=== PATIENT | male | born 1965 | race Caucasian/White ===

== ENCOUNTER 2018-05-28 16:36 | Outpatient (REF) | payer OTHER, SELFPAY ==
[2018-05-28 22:33] LABS: ALT 43 U/L (12-78); AST 38 U/L (15-37); Albumin 4.2 g/dL (3.4-5.0); Alkaline Phosphatase 159 U/L (46-116); Anion Gap 11.3 mmol/L (3-11); BUN 23 mg/dL (7-18); Bilirubin, Total 0.3 mg/dL (0.2-1.0); CO2 26.7 mmol/L (21.0-32.0); CREATININE 0.93 mg/dL (0.70-1.30); Calcium 9.3 mg/dL (8.5-10.1); Chloride 101 mmol/L (98-107); Cholesterol 235 mg/dL (50-200); Glucose 105 mg/dL (70-100); HDL Cholesterol 31 mg/dL (40-60); LDL CHOLESTEROL 119 mg/dL (<100); Potassium 4.6 mmol/L (3.5-5.1); Sodium 139 mmol/L (136-145); Total Protein 7.3 g/dL (6.4-8.2); Triglyceride 525 mg/dL (30-150)
[2018-05-30 09:37] LABS: PSA, Screening 1.3 ng/ml (0-3.5)
== END 2018-05-28 16:56 ==
LOC: NCHCN 16:36
PROVIDERS: PCP Family Medicine; Visit Provider Family Medicine
DX: Z00.00 Encounter for general adult medical examination without abnormal findings (principal); Z13.220 Encounter for screening for lipoid disorders; Z13.228 Encounter for screening for other metabolic disorders; Z12.5 Encounter for screening for malignant neoplasm of prostate
CPT/HCPCS: 80053; 80061; 83721; 84153

== ENCOUNTER 2018-07-02 01:06 | Outpatient (CLI) | payer OTHER, SELFPAY | END 2018-07-02 01:26 | PROVIDERS: PCP Family Medicine; Visit Provider Dietitian, Registered | DX: E78.1 Pure hyperglyceridemia (principal); Z71.3 Dietary counseling and surveillance | CPT/HCPCS: 97802 ==

== ENCOUNTER 2018-09-02 07:52 | Outpatient (REF) | payer OTHER, SELFPAY ==
[2018-09-02 13:02] LABS: Calculated LDL 168 mg/dL; Cholesterol 230 mg/dL (50-200); HDL Cholesterol 47 mg/dL (40-60); Triglyceride 75 mg/dL (30-150)
== END 2018-09-02 08:12 ==
LOC: NCHCN 07:52
PROVIDERS: PCP Family Medicine; Visit Provider Family Medicine
DX: E78.1 Pure hyperglyceridemia (principal)
CPT/HCPCS: 80061; 83721

== ENCOUNTER 2018-11-19 15:05 | Outpatient (REF) | payer OTHER, SELFPAY ==
[2018-11-19 22:53] LABS: Abs Immature Grans 0.05 k/cumm (0.0-0.09); Absolute Basophil Count 0.02 k/cumm (0.0-0.2); Absolute Eosinophil Count 0.24 k/cumm (0.0-0.7); Absolute Lymphocyte Count 1.99 k/cumm (1.2-3.4); Absolute Monocyte Count 0.52 k/cumm (0.11-0.7); Absolute Neutrophil Count 2.65 k/cumm (1.2-6.7); Basophils % 0.4; Eosinophils % 4.4; HCT 48.4 % (40.0-50.0); HGB 17.5 g/dL (13.5-17.5); Immature Grans % 0.9; Lymphocytes % 36.4; Mean Corp. HGB Concentration 36.2 g/dL (32.0-36.0); Mean Corpuscular Hemoglobin 31.2 pg (27.0-33.0); Mean Corpuscular Volume 86.3 fL (80-95); Mean Platelet Volume 9.5 fL (8.0-11.0); Monocytes % 9.5; Neutrophils % 48.4; Platelet Count 341 x1000/uL (130-400); RBC 5.61 m/cumm (4.50-6.00); RBC Distribution Width 11.8 % (11.8-14.1); White Blood Cell Count 5.47 k/cumm (4.4-10.8)
[2018-11-19 23:08] LABS: ALT 44 U/L (16-63); AST 29 U/L (15-37); Albumin 4.3 g/dL (3.4-5.0); Alkaline Phosphatase 151 U/L (46-116); Anion Gap 10.1 mmol/L (3-11); BUN 23 mg/dL (7-18); Bilirubin, Total 0.6 mg/dL (0.2-1.0); CO2 22.9 mmol/L (21.0-32.0); CREATININE 1.05 mg/dL (0.70-1.30); Calcium 9.1 mg/dL (8.5-10.1); Chloride 98 mmol/L (98-107); Glucose 108 mg/dL (70-100); Sodium 131 mmol/L (136-145); Total Protein 7.5 g/dL (6.4-8.2)
[2018-11-21 11:01] LABS: PSA, Screening 1.2 ng/ml (0-3.5)
== END 2018-11-19 15:25 ==
LOC: NCHCN 15:05
PROVIDERS: PCP Family Medicine; Visit Provider Family Medicine
DX: R63.4 Abnormal weight loss (principal); Z12.5 Encounter for screening for malignant neoplasm of prostate
CPT/HCPCS: 80053; 84153; 83735; 85025; 86140

== ENCOUNTER 2018-12-22 01:50 | Outpatient (CLI) | payer OTHER, SELFPAY ==
--- NOTE | 2018-12-22 08:56 | DI.CT_ITS ---
EXAM: CT ABDOMEN PELVIS W CLINICAL HISTORY: RECENT WT LOSS, R63.4,ABD DISCOMFORT, R10.9 TECHNIQUE: Imaging Protocol: Axial computed tomography images with coronal and sagittal reformatted images were created and reviewed CONTRAST MATERIAL: Intravenous: Omnipaque 350 Contrast volume:100 cc's contrast route:IV - Oral: Yes COMPARISON: No exams were available for comparison FINDINGS: The lung bases are clear. The liver is normal in size. There are a few tiny hypodense lesions in th e liver. They are too small for further characterization but likely reflect small cysts. No suspici ous hepatic mass is present. The portal, superior mesenteric and splenic veins are patent. The gall bladder is unremarkable. There is no biliary ductal dilatation. The pancreas and spleen are unremar kable. The adrenal glands are unremarkable. The kidneys show normal and symmetric enhancement. No solid renal mass or obstruction is identified. The urinary bladder is intact. The prostate gland ap pears mildly enlarged. The abdominal aorta is of normal caliber. No significant abdominal or pelvic adenopathy is present. No abdominal or pelvic ascites or pneumoperitoneum is present. The bowel sh ows no evidence of obstruction or inflammation. There is a normal appendix present. There are degen erative changes seen in the spine. The findings are most marked at L5-S1. Impression: No evidence of an acute abdomen. DATA REPOSITORY: All CT scans at this facility are submitted to the National Radiology Data Registry (NRDR) Dose Index Registry (DIR) with the [employer] ([employer]). RADIATION OPTIMIZATION: All CT scans at this facility use at least one of these dose optimization te chniques: automated exposure control; mA and/or kV adjustment per patient size (includes targeted exa ms where dose is matched to clinical indication); or iterative reconstruction.
[2018-12-22] MEDS: Omnipaque 350 MG/ML 100 ML BTL IJ (08:57)
[2018-12-22] MEDS: Omnipaque 350 MG/ML 50 ML BTL IJ (08:58)
== END 2018-12-22 02:10 ==
PROVIDERS: PCP Family Medicine; Visit Provider Nurse Practitioner Family
DX: R10.9 Unspecified abdominal pain (principal); R63.4 Abnormal weight loss; K76.89 Other specified diseases of liver; N40.0 Benign prostatic hyperplasia without lower urinary tract symptoms
CPT/HCPCS: 74177; J3490; Q9967

== ENCOUNTER 2019-02-03 09:47 | Emergency (ER) | payer OTHER, SELFPAY ==
[2019-02-03] VITALS (42 sets, daily range): BP systolic 91–121; BP diastolic 53–83; PULSE 71–120; RESP 12–21; TEMP 36.7; O2SAT 95–100
[2019-02-03] MEDS: Lactated Ringers 1,000 ML 1000 ML IV (09:58)
--- NOTE | 2019-02-03 09:59 | ED.GENADUL_ITS ---
Discharge Plan Disposition Patient Disposition: HOME Discharge Details Chief Complaint: SOB Clinical Impression: Hyponatremia, Shortness of breath, Fatigue, Unintended weight loss Primary Care Provider: Janice Rasheed ED Provider: Luis Fernando Parisi Home Meds and New Rx's Prescriptions: No Action No Known Home Meds RF: 0 Discharge Instructions Instructions: Dyspnea (ED) Additional Instructions: Your work-up today demonstrates no acute findings. You have an underlying chronic low sodium which has been established at [facility]. I have been in contact with the GI department and I expect in the follow-up with you in the next 24 hours. Contact them tomorrow should you not hear from them by midday. If your symptoms of shortness of breath worsen or you develop chest pain you must return to the emergency department immediately. Referrals: Janice Rasheed [Primary Care Provider] - 5 days Medical Decision Making This is a nontoxic-appearing 53-year-old male who presents to the emergency department with constitutional symptoms of chronic nausea/upset stomach, diarrhea, fatigue with exercise. His new presenting symptom today is shortness of breath. He felt very dizzy prior to arrival and noted labored breathing. He denies any chest pain but does describe heaviness in his chest. He is a low HEART score at this time and his serial enzymes are negative in the emergency department. I do not suspect ACS at this time. His CTA of his chest was negative for acute intrathoracic pathology including pulmonary embolism. His labs demonstrate a hyponatremia at 128 which is exactly the same from his levels yesterday at [facility]. The remainder of his lab tests are within normal limits. He has established care with GI who is closely involved in his case. I spoke to the nurse at the GI clinic, Kayode, earlier in the course of his ED treatment. I left a message with their clinic regarding his lab test today and to follow- up with the patient tomorrow. Patient has a stress test scheduled for early next week. I feel that this is appropriate based on his exercise intolerance with mild dyspnea on exertion. We discussed strict return precautions and the need for follow-up. HPI General Date/Time Provider Initiated Documentation: 02/03/19 09:48 . HPI Narrative: Patient is a 53-year-old male who presents to the emergency department complaining of shortness of breath and generalized fatigue. Patient states that his symptoms have been present for the last month however acutely worse the last 24 hours. He has been seen by his primary care provider and gastroenterology team at [facility] where he was scheduled to have a CT of his chest later today. He denies any chest pain. He has had roughly 25 pounds of weight loss over the last 6 months. He denies any hemoptysis or sputum production. No calf pain or swelling. He has no abdominal pain. He had a CT abdomen and pelvis here in the emergency department several weeks ago which was negative. He denies any rashes or lesions. No family history of early onset heart disease. He is a non-smoker. He denies any history of cancer. No recent or prolonged immobilization and/or surgery. Related Data Home Medications Medication Instructions Recorded Confirmed Unknown [No Known Home Meds] 02/03/19 02/03/19 Allergies Allergy/AdvReac Type Severity Reaction Status Date / Time No Known Allergies Allergy Unverified 02/03/19 09:59 General Stated Complaint: SOB JAYLEEN: 2 Review of Systems Constitutional Constitutional: Reports fatigue, Denies fever(s), Denies headache(s), Reports lethargy, Denies night sweats and Denies snoring Eyes Eyes: Denies blind spots, Denies blurry vision, Denies diplopia, Denies eye discharge, Denies loss of peripheral vision, Denies photophobia, Denies spots in vision and Denies tunnel vision ENT Ears, Nose, Mouth, and Throat: Reports dizziness, Denies headache(s), Denies sinus pressure, Denies sore throat and Denies throat swelling Cardiovascular Cardiovascular: Denies chest pain, Denies claudication, Denies leg edema, Reports lightheadedness and Reports dyspnea Respiratory Respiratory: Denies cough, Denies hemoptysis, Reports dyspnea, Denies snoring, Denies stridor and Denies wheezing Gastrointestinal Gastrointestinal: Denies abdominal pain, Reports belching, Reports diarrhea, Reports nausea and Denies vomiting Genitourinary Genitourinary: Denies dysuria Musculoskeletal Musculoskeletal: Denies muscle cramps and Denies numbness Integumentary/Breasts Skin/Breast: Denies erythema and Denies rash Neurologic Neurologic: Reports dizziness, Denies headache(s), Denies numbness and Denies sensory deficit Endocrine Endocrine: Reports fatigue Hematologic/Lymphatic Hematologic/Lymphatic: Denies easy bleeding and Denies easy bruising Allergic/Immunologic Allergic/Immunologic: Denies throat swelling and Denies wheezing [facility] Social History Smoking/Tobacco Use Status: Former Tobacco Use Alcohol Intake: current Alcohol Intake frequency: 0-2 drinks per day Alcohol type: beer Drug use: Never Substance use type: does not use Exam Const General: cooperative, healthy appearing and anxious Orientation: alert, awake and oriented x3 HENMT Head: normal to inspection Ears: hearing grossly normal bilaterally General nose exam: external nose normal Face and sinus: normal facial exam Mouth: oral mucosae normal Teeth and gingiva: dentition normal Throat: posterior oropharynx normal Eyes General: appearance normal, both eyes and all related structures Pupils: PERRL EOM: EOM intact bilaterally Neck Neck: normal visual inspection, full ROM, no lymphadenopathy and no meningeal signs Chest Chest: normal inspection of the chest and normal palpation of entire chest wall Resp Effort & Inspection: normal respiratory effort and able to speak in complete sentences Auscultation: clear to auscultation bilaterally Cardio Rate: tachycardic Rhythm: regular rhythm Pulses: normal peripheral pulses GI Inspection: normal to inspection Palpation: soft and nontender Back/Spine/Pelvis Back: no CVA tenderness Skin General skin exam: no rashes or lesions noted Neuro General: alert, awake and oriented x3 Cranial Nerves: CN's II-XI intact bilaterally Motor: muscle tone normal throughout Sensory Exam: no sensory deficits noted Extrem General: normal to inspection, full ROM and no pedal edema Course Vital Signs Vital signs: Vital Signs Temperature 36.7 C 02/03/19 09:51 Pulse 120 H 02/03/19 09:51 Respiratory Rate 20 02/03/19 09:51 Blood Pressure 121/83 02/03/19 09:51 Pulse Oximetry 100 02/03/19 09:51 Temperature 36.7 C 02/03/19 09:51 Temperature Source Temporal Artery Scan 02/03/19 09:51 Pulse 120 H 02/03/19 09:51 Respiratory Rate 20 02/03/19 09:51 Respiratory Effort 02/03/19 09:57 Blood Pressure 121/83 02/03/19 09:51 Blood Pressure Position Sitting 02/03/19 09:51 Pulse Oximetry 100 02/03/19 09:51 Oxygen Delivery Method Room Air 02/03/19 09:51 Oxygen Flow Rate 0 02/03/19 09:51 Pain Level 0 02/03/19 09:51
[2019-02-03 10:14] LABS: Abs Immature Grans 0.03 k/cumm (0.0-0.09); Absolute Basophil Count 0.02 k/cumm (0.0-0.2); Absolute Eosinophil Count 0.21 k/cumm (0.0-0.7); Absolute Lymphocyte Count 1.56 k/cumm (1.2-3.4); Absolute Monocyte Count 0.48 k/cumm (0.11-0.7); Absolute Neutrophil Count 3.11 k/cumm (1.2-6.7); Basophils % 0.4; Eosinophils % 3.9; HCT 45.8 % (40.0-50.0); HGB 16.6 g/dL (13.5-17.5); Immature Grans % 0.6; Lymphocytes % 28.8; Mean Corp. HGB Concentration 36.2 g/dL (32.0-36.0); Mean Corpuscular Volume 85.6 fL (80-95); Mean Platelet Volume 8.9 fL (8.0-11.0); Monocytes % 8.9; Neutrophils % 57.4; Platelet Count 320 x1000/uL (130-400); RBC 5.35 m/cumm (4.50-6.00); RBC Distribution Width 11.7 % (11.8-14.1); White Blood Cell Count 5.41 k/cumm (4.4-10.8)
[2019-02-03 10:31] LABS: PTT Activated 24.8 sec (21.0-31.4)
[2019-02-03 10:32] LABS: ALT 31 U/L (16-63); AST 22 U/L (15-37); Alkaline Phosphatase 132 U/L (46-116); Anion Gap 11.7 mmol/L (3-11); BUN 33 mg/dL (7-18); Bilirubin, Total 0.6 mg/dL (0.2-1.0); CO2 23.3 mmol/L (21.0-32.0); CREATININE 1.32 mg/dL (0.70-1.30); Calcium 8.9 mg/dL (8.5-10.1); Chloride 93 mmol/L (98-107); Estimated GFR 56.31 (mL/min/1.73m2); Glucose 188 mg/dL (74-106); Magnesium 1.7 mg/dL (1.8-2.4); NT-proBNP 33 pg/mL (<300); Sodium 128 mmol/L (136-145); Total Protein 7.5 g/dL (6.4-8.2)
[2019-02-03 10:35] LABS: Troponin I < 0.05 ng/Ml (<0.06)
[2019-02-03] MEDS: Omnipaque 350 MG/ML 100 ML BTL IJ (11:03)
--- NOTE | 2019-02-03 11:03 | DI.CT_ITS ---
EXAM: CT CHEST PE CTA CLINICAL HISTORY: Weight loss, tachycardia, shortness of breath TECHNIQUE: Axial CT angiography was performed with multi-slice acquisition and multi-planar and/or 3 D reconstructions. COMPARISON: No exams were available for comparison FINDINGS: The aorta and pulmonary arteries are well opacified with IV contrast. There is no evidence of pulmona ry emboli or aortic dissection. There are no pleural or pericardial effusions or evidence of adenopat hy. The lungs appear clear. No infiltrates are seen. The visualized portions of the upper abdomen are unremarkable. No bony abnormalities are seen. IMPRESSION: Negativechest CT. No evidence of pulmonary emboli or other acute abnormality.
[2019-02-03 13:34] LABS: Troponin I < 0.05 ng/Ml (<0.06)
[2019-02-03 14:30] LABS: Sodium, Urine 85 mmol/L
== END 2019-02-03 14:15 | disposition home or self-care (01) ==
PROVIDERS: Emergency Provider Physician Assistant; PCP Family Medicine
DX: R06.02 Shortness of breath (principal); E87.1 Hypo-osmolality and hyponatremia; R53.83 Other fatigue; R63.4 Abnormal weight loss; R11.0 Nausea; R42 Dizziness and giddiness
CPT/HCPCS: 36415; 36416; 71275; 80053; 82962; 93005; 96360; 96361; 99285; 83735; 83880; 84300; 84484; 85025; 85610; 85730; 93010; J3490

== ENCOUNTER 2019-02-12 12:17 | Outpatient (REF) | payer OTHER, SELFPAY ==
[2019-02-12 13:31] LABS: Anion Gap 7.9 mmol/L (3-11); BUN 21 mg/dL (7-18); CO2 28.1 mmol/L (21.0-32.0); Calcium 8.5 mg/dL (8.5-10.1); Chloride 104 mmol/L (98-107); Glucose 95 mg/dL (74-106); Potassium 4.5 mmol/L (3.5-5.1); Sodium 140 mmol/L (136-145)
== END 2019-02-12 12:37 ==
LOC: NCHCO 12:17
PROVIDERS: PCP Family Medicine; Visit Provider Family Medicine
DX: E27.1 Primary adrenocortical insufficiency (principal)
CPT/HCPCS: 80048

== ENCOUNTER 2024-05-13 08:19 | Outpatient (REF) | payer OTHER, SELFPAY ==
[2024-05-13 14:28] LABS: Hemoglobin A1C 5.7 % (<5.7)
[2024-05-13 14:55] LABS: Anion Gap 7.8 mmol/L (3-11); BUN 20 mg/dL (7-18); CO2 29.2 mmol/L (21.0-32.0); Chloride 103 mmol/L (98-107); Estimated GFR 86.16 (mL/min/1.73m2); Glucose 83 mg/dL (74-106); Potassium 4.6 mmol/L (3.5-5.1); Sodium 140 mmol/L (136-145); TSH (W/Ref FT4) 1.55 uIU/mL (0.36-3.74); Vitamin B12 602 pg/mL (193-986)
== END 2024-05-13 08:20 | disposition home or self-care (01) ==
LOC: NCHCN 08:19
PROVIDERS: PCP Family Medicine; Visit Provider Family Medicine
DX: E27.40 Unspecified adrenocortical insufficiency (principal)
CPT/HCPCS: 80048; 82607; 83036; 84443